=== PATIENT | male | born 1950 | race Caucasian/White ===

== ENCOUNTER 2024-12-07 17:42 | Emergency (ER) | payer MEDICARE | END 2024-12-07 19:00 | disposition home or self-care (01) | LOC: MW.ED 17:42 | DX: M19.031 Primary osteoarthritis, right wrist (principal); I10 Essential (primary) hypertension; I48.91 Unspecified atrial fibrillation; Z79.899 Other long term (current) drug therapy; Z90.49 Acquired absence of other specified parts of digestive tract | CPT/HCPCS: 99283; 99284 ==